=== PATIENT | female | born 1995 | race Caucasian/White ===

== ENCOUNTER 2016-08-18 01:58 | Emergency (ER) | payer BC ==
[~2016-08-18] VITALS: Ht 162.6 cm; Wt 122.6 kg
[2016-08-18 02:07] VITALS: TEMP 36.9; Ht 162.6 cm; Wt 122.6 kg
[2016-08-18] MEDS ORDERED: AMOXICILLIN 250 MG CAP PO STA (03:03)
[2016-08-18] MEDS ORDERED: AMOXICILLIN HOME PACK 250 MG/TAB PO ONE (03:15)
[2016-08-18] MEDS ORDERED: SUMA50TA15 PO (03:32)
[2016-08-18] MEDS ORDERED: NAPR-1169 PO (03:32)
[2016-08-18] MEDS ORDERED: LEVA45AE INH (03:32)
[2016-08-18] MEDS ORDERED: TEST1INJ2 IM (03:32)
[2016-08-18] MEDS ORDERED: ONDA4TAB46 PO (03:32)
[2016-08-18] MEDS ORDERED: AMOX500C3 PO (03:49)
[2016-08-18] MEDS ORDERED: PRED50TA PO (03:49)
--- NOTE | 2016-08-18 03:49 | EMERGENCY ROOM VISIT NOTE ---
ED Visit Note First contact with patient: 02:30 Chief Complaint: Sore Throat, Cough, Difficulty Swallowing History of Present Illness: Patient is a 21-year-old female who presents to the emergency department today for evaluation of her ongoing sore throat. The patient reports that she's been treated with 2 separate courses of antibiotics. She recently completed a course of antibiotics on Wednesday for possible strep throat. She reports that she's been having trouble swallowing and pain in her tongue since been off the medication. She was seen at [facility] and had an unremarkable stress test performed yesterday. She is tried magic's was all and naproxen with minimal relief of symptoms. She denies fevers or chills. She denies any headaches, dizziness, lightheadedness, cough, nausea, or vomiting. She denies any dental pain. The patient reports that she is concern for possible need to have her tonsils removed. She has not followed up with ENT locally. She rates her current discomfort as a 7/10. She offers no other complaints at this time. Medications: No current medications. Allergies: No known allergies. PMH: No pertinent past history. 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 ROS: All pertinent positive and negative review of systems are appropriately documented in the History of Present Illness. Physical Exam: VITAL SIGNS - Vital signs and nursing notes were reviewed. GENERAL - Well nourished, well developed 21-year-old female in no acute distress. Pt communicates well with provider and answers questions appropriately. SKIN - Without rash. HEAD - NC/AT with no obvious deformities. EYES - PERRL with EOMI bilaterally. Sclera without injection. Palpebral conjunctiva pink and moist. EARS - No deformities of external structures noted on gross examination bilaterally. No pain elicited with palpation of the tragus bilaterally. External auditory canals without discharge or otorrhea. Tympanic membranes pearly cooper without retraction or bulging. No fluid or purulent material visualized behind the TM. Handle of malleus, umbo, cone of light, pars tensa/ flaccid all easily visualized. NOSE - Midline and without cyanosis. No purulent drainage noted. Nasal mucosa without mucus discharge. MOUTH/OROPHARYNX - Without perioral cyanosis. Buccal mucosa pink and moist and without leukoplakia. Tongue midline with without palate deviation. Mild tonsillar hypertrophy appreciated bilaterally. No kissing tonsils. No trismus. No erythema or exudates noted. Good dentition noted. No voice. NECK - Neck with FROM. Supple to palpation. No lymphadenopathy noted. No nuchal rigidity. LUNGS - Chest wall symmetric without accessory muscle use, intercostals retractions, or central cyanosis. Normal vesicular breath sounds CTA B/L. No wheezes, rales, or rhonchi appreciated. CARDIAC - RRR with S1/S2. No murmur, rubs, or gallops appreciated. ED Course: Patient was seen and evaluated by myself. I had a lengthy conversation with the patient regarding ongoing symptoms. The patient is requesting an antibiotic as well as steroids. She wishes to follow up locally with ENT. I did oblige as the patient has had ongoing symptoms and resolve the previously mentioned cocktail. The patient's exam is otherwise unremarkable. She has no significant findings at this point. I do not feel repeat strep test is negative at this point. She's had negative Noble tests She will follow-up with ENT from today's visit or return for changes as worsening symptoms. Patient discharged home in good condition. In the evaluation and treatment of this patient, the following differential diagnoses were considered: Strep, mono, retropharyngeal abscess, peritonsillar abscess, Viral URI, amongst others. Impression: Tonsillitis Discharge Instructions: You've been seen in the emergency department today for your tonsillitis. You were prescribed amoxicillin to be taken as prescribed. This is an antibiotic. All antibiotics have the potential to cause diarrhea. Stop this medication and contact a medical provider if you were to develop any significant adverse side effects including: wheezing, shortness of breath, passing out, vomiting, or a diffuse rash. Always take antibiotics as directed and COMPLETE the ENTIRE course regardless of the improvement of your symptoms. You have been prescribed Prednisone 50 mg to be taken orally once a day for the next 4 days. This is an anti-inflammatory medicine to be used to help minimize your symptoms. You should take the COMPLETE course of the medication. For pain control, you can use the following [id number]-[id number] medicines (if >12 yo): - Regular strength (325mg/tab) Tylenol (acetaminophen) 2 tabs every 4-6 hours as needed. Do not exceed 12 tablets in a 24 hour period. Avoid taking more than 4 grams (4000 mg) of Tylenol per day. This includes any other sources of acetaminophen you may take on a regular basis. - Regular strength (200 mg/tab) Advil (ibuprofen) 1-2 tabs every 4-6 hours as needed. Do not exceed a dose of 3200 mg per day. Follow-up with ENT from today's visit. Return for any changing or worsening symptoms. Current/Historical Medications Scheduled Amoxicillin (Amoxil), 500 MG PO TID Testosterone Cypionate (Testosterone Cypionate), 175 MG IM EVERY OTHER WEEK Scheduled PRN Levalbuterol Tartrate (Levalbuterol Tartrate Hfa), 2 PUFFS INH DIRECTED PRN for Shortness of Breath Naproxen (Naprosyn), 500 MG PO BID PRN for Pain Ondansetron Hcl (Zofran), 4 MG PO Q6H PRN for Nausea Sumatriptan Succinate (Imitrex), Unknown Dose PO PRN PRN for Migraine Allergies Coded Allergies: No Known Allergies (Unverified , 08/18/16) Vital Signs Date Time Temp Pulse Resp B/P Pulse Ox O2 Delivery O2 Flow Rate FiO2 08/18/16 03:59 97 18 134/97 95 08/18/16 02:34 Room Air 08/18/16 02:07 36.9 107 18 161/103 97 Room Air Medications Administered Medications (Trade) Dose Ordered Sig/Gladys Route Start Time Stop Time Status Last Admin Dose Admin Prednisone (PredniSONE TAB) 60 mg NOW STAT PO 08/18/16 03:03 08/18/16 03:04 DC 08/18/16 03:11 60 MG Amoxicillin (Amoxil Cap) 500 mg NOW STAT PO 08/18/16 03:03 08/18/16 03:04 DC 08/18/16 03:10 500 MG Amoxicillin (Amoxil 250MG Home Pack) 1 homepack UD ONCE PO 08/18/16 03:15 08/18/16 03:16 DC 08/18/16 03:56 1 HOMEPACK Departure Information Impression Primary Impression: Tonsillitis Dispostion Home / Self-Care Condition GOOD Prescriptions Amoxicillin (AMOXIL) 500 Mg Cap 500 MG PO TID for 10 Days, #30 CAP Prov: Andrew Agrawal PA-C 08/18/16 Referrals [facility] (PCP) Patient Instructions My [facility] Additional Instructions You've been seen in the emergency department today for your tonsillitis. You were prescribed amoxicillin to be taken as prescribed. This is an antibiotic. All antibiotics have the potential to cause diarrhea. Stop this medication and contact a medical provider if you were to develop any significant adverse side effects including: wheezing, shortness of breath, passing out, vomiting, or a diffuse rash. Always take antibiotics as directed and COMPLETE the ENTIRE course regardless of the improvement of your symptoms. You have been prescribed Prednisone 50 mg to be taken orally once a day for the next 4 days. This is an anti-inflammatory medicine to be used to help minimize your symptoms. You should take the COMPLETE course of the medication. For pain control, you can use the following [id number] medicines (if >12 yo): - Regular strength (325mg/tab) Tylenol (acetaminophen) 2 tabs every 4-6 hours as needed. Do not exceed 12 tablets in a 24 hour period. Avoid taking more than 4 grams (4000 mg) of Tylenol per day. This includes any other sources of acetaminophen you may take on a regular basis. - Regular strength (200 mg/tab) Advil (ibuprofen) 1-2 tabs every 4-6 hours as needed. Do not exceed a dose of 3200 mg per day. Follow-up with ENT from today's visit. Return for any changing or worsening symptoms.
[2016-08-18 03:59] VITALS: BP 134/97; PULSE 97; O2SAT 95
== END 2016-08-18 03:59 | disposition home or self-care (01) ==
LOC: C.EDB 02:00 → C.EDA 03:59
DX: J03.90 Acute tonsillitis, unspecified (principal); Z79.899 Other long term (current) drug therapy

== ENCOUNTER 2017-02-11 23:32 | Emergency (ER) | payer BC ==
[~2017-02-11] VITALS: Ht 162.6 cm; Wt 122.2 kg
[~2017-02-11 23:32] MED LIST: LEVA45AE INH; NAPR-1169 PO; ONDA4TAB46 PO; SUMA50TA15 PO; TEST1INJ2 IM
[2017-02-11 23:38] VITALS: TEMP 36.8; Ht 162.6 cm; Wt 122.2 kg
[2017-02-12 01:14] VITALS: BP 147/84; PULSE 98; O2SAT 96
--- NOTE | 2017-02-12 01:46 | EMERGENCY ROOM VISIT NOTE ---
History First contact with patient: 23:40 Chief Complaint: ANKLE PAIN Stated Complaint: LEFT ANKLE SWELLING/PAIN History of Present Illness The patient is a 21 year old female who presents to the Emergency Room with complaints of persistent left ankle pain after twisting his ankle when stepping in a hole. The injury happened last evening, and has had persistent pain with weightbearing. He rates his discomfort a 7 out of 10. He denies any paresthesias or numbness of the left foot or toes, and denies any significant pain radiating into the leg. The patient denies any prior history of left ankle injuries. He has not taken any medications for pain. Review of Systems 10 system review was performed and was negative except for pertinent positives and negatives as indicated in history of present illness Past Medical/Surgical History Medical Problems: (1) Asthma (2) Pneumonia (3) Ventricular septal defect Surgical Problems: (1) History of wisdom tooth extraction Family History FH: cancer FH: hypertension Social History Smoking Status: Never Smoker Alcohol Use: none Marital Status: single Housing Status: lives with roommate Occupation Status: [employer] student Current/Historical Medications Scheduled Testosterone Cypionate (Testosterone Cypionate), 175 MG IM EVERY OTHER WEEK Scheduled PRN Levalbuterol Tartrate (Levalbuterol Tartrate Hfa), 2 PUFFS INH DIRECTED PRN for Shortness of Breath Naproxen (Naprosyn), 500 MG PO BID PRN for Pain Ondansetron Hcl (Zofran), 4 MG PO Q6H PRN for Nausea Sumatriptan Succinate (Imitrex), Unknown Dose PO PRN PRN for Migraine Physical Exam Vital Signs Date Time Temp Pulse Resp B/P (MAP) Pulse Ox O2 Delivery O2 Flow Rate FiO2 02/12/17 01:14 98 147/84 96 02/11/17 23:38 36.8 113 18 146/97 98 Room Air Pain Rating (0-10): 1.0 Physical Exam CONSTITUTIONAL: Morbidly obese male, alert and oriented X 3 with positive affect. She does not appear in any acute distress. HEENT: Normocephalic, atraumatic. Pupils equal, round and reactive. NECK: Full active range of motion without discomfort. MUSCULOSKELETAL: Examination of the left ankle shows no obvious ecchymosis or edema. No open wounds noted. The patient is minimally tender over the lateral malleolus and ligament. Minimal tenderness over the deltoid ligament. Negative anterior draw test. No focal tenderness across the dorsal midfoot, metatarsals, phalanges, calcaneus, Achilles tendon or proximal fibula. Pedal pulses are intact. INTEGUMENTARY: No rash or other significant dermatologic conditions noted. NEUROLOGIC: No focal neurologic deficits noted. Medical Decision & Procedures ER Provider Diagnostic Interpretation: My interpretation of left ankle x-rays does not show any obvious fractures, dislocation or ankle mortise asymmetry. Radiologist report is pending. ED Course Patient history and physical exam were performed. Nurse's notes were reviewed. The patient refused any analgesics. X-rays of the left ankle were normal. The patient was dispensed crutches, and encouraged to intermittently apply ice and elevate ankle for swelling. Ibuprofen and Tylenol as needed for pain. Follow-up with orthopedics if symptoms are not improving within the next week. The patient voiced understanding of all discharge instructions, was happy with plan of care, and denied any significant pain at the time of discharge. Medical Decision Medication Reconcilliation Current Medication List: was personally reviewed by me Blood Pressure Screening Patient's blood pressure: Normal blood pressure Impression Primary Impression: Left ankle sprain Departure Information Dispostion Home / Self-Care Forms HOME CARE DOCUMENTATION FORM, IMPORTANT VISIT INFORMATION Patient Instructions My [facility] [employer] Additional Instructions Intermittently apply ice and elevate the ankle for swelling and pain. Ibuprofen 800 mg and/or Tylenol 1000 mg every 8 hours. You may also alternate these medications for more effective pain relief: Ibuprofen --4 HRS--> Tylenol --4 HRS--> ibuprofen --4 HRS--> Tylenol .... Perform range of motion exercises of the ankle to prevent stiffness. Use crutches as needed to avoid limping. Follow-up with orthopedics if symptoms are not improving within the next week. Problem Qualifiers Primary Impression: Left ankle sprain Encounter type: initial encounter Involved ligament of ankle: unspecified ligament Qualified Codes: S93.402A - Sprain of unspecified ligament of left ankle, initial encounter
--- NOTE | 2017-02-12 06:38 | DIAGNOSTIC IMAGING REPORT ---
L ANKLE MIN 3 VIEWS ROUTINE CLINICAL HISTORY: Left ankle pain status post trauma COMPARISON: None. DISCUSSION: No fractures or dislocations are visualized. There is a tiny plantar calcaneal spur. IMPRESSION: No fractures or dislocations identified. Electronically signed by: Frantz Abel M.D. 02/12/2017 6:37 AM Dictated Date/Time: 02/12/2017 6:37 AM
== END 2017-02-12 01:14 | disposition home or self-care (01) ==
LOC: C.EDB 23:32 → C.EDD 02-12 01:14
DX: S93.402A Sprain of unspecified ligament of left ankle, initial encounter (principal); X50.1XXA Overexertion from prolonged static or awkward postures, initial encounter; Y93.89 Activity, other specified; Y99.8 Other external cause status; J45.909 Unspecified asthma, uncomplicated; E66.01 Morbid (severe) obesity due to excess calories; Z68.42 Body mass index [BMI] 45.0-49.9, adult; Z87.01 Personal history of pneumonia (recurrent); Z98.818 Other dental procedure status; Z82.49 Family history of ischemic heart disease and other diseases of the circulatory system